=== PATIENT | male | born 1990 | race Two or more races ===

== ENCOUNTER 2020-07-05 20:43 | Emergency (ER) | payer OTHER ==
[~2020-07-05] VITALS: Ht 182.9 cm; Wt 95.3 kg
[~2020-07-05 20:43] MED LIST: FLUO10CA26 PO; RISP1TAB7 PO
[2020-07-05 22:33] LABS: BASOPHILS % (AUTO) 0.6 % (0.0-2.0); EOSINOPHILS # (AUTO) 0.1 K/uL (0.0-0.7); EOSINOPHILS % (AUTO) 1.9 % (0.0-7.0); HEMATOCRIT 41.1 % (36.7-47.1); HEMOGLOBIN 14.6 g/dL (12.5-16.3); LYMPHOCYTES % (AUTO) 51.3 % (20.5-51.5); MEAN CORPUSCULAR HEMOGLOBIN 28.6 uug (23.8-33.4); MEAN CORPUSCULAR HGB CONC 36 g/dL (32.5-36.3); MEAN CORPUSCULAR VOLUME 80.7 fL (73.0-96.2); MONOCYTES # (AUTO) 0.5 K/uL (2.0-10.0); MONOCYTES % (AUTO) 6.2 % (0.0-11.0); NEUTROPHILS # (AUTO) 3.1 K/uL (1.8-8.9); PLATELET COUNT (AUTO) 399 K/uL (152-348); RED BLOOD CELL COUNT(AUTO) 5.09 MIL/uL (4.06-5.63); WHITE BLOOD COUNT (AUTO) 7.7 K/uL (3.6-10.2)
--- NOTE | 2020-07-05 22:37 | NUR ---
LABS DRAWN/SENT, COVID SAMPLE SENT, PT ON [facility] PRECAUTIONS IN USE, FAMILY AT THE BEDSIDE, AWAITING FOR URINE, BOTTLE OF WATER GIVEN.
[2020-07-05 22:59] LABS: ALANINE AMINOTRANSFERASE 101 U/L (16-63); BILIRUBIN,DIRECT 0.2 mg/dL (0.0-0.2); CHLORIDE 98 mmol/L (98-107); LIPASE 201 U/L (73-393); POTASSIUM 3.3 mmol/L (3.5-5.1)
[2020-07-05 23:10] LABS: ALKALINE PHOSPHATASE 44 U/L (50-136); ASPARTATE AMINOTRANSFERASE 37 U/L (15-37); BILIRUBIN,TOTAL 0.6 mg/dL (0.2-1.0); CARBON DIOXIDE 26 mmol/L (21-32); CREATININE 0.7 mg/dL (0.6-1.3); GLUCOSE 98 mg/dL (74-106); TOTAL PROTEIN, SERUM 8.9 g/dL (6.4-8.2); UREA NITROGEN, BLOOD 11 mg/dL (7-18)
[2020-07-05 23:11] LABS: *BILIRUBIN,URIN NEGATIVE (NEGATIVE); *BLOOD, URINE NEGATIVE (NEGATIVE); *CLARITY,URINE CLEAR (CLEAR); *COLOR,URINE YELLOW (YELLOW); *KETONES,URINE NEGATIVE (NEGATIVE); *UROBILINOGEN,URINE 0.2 E.U./dl (NORMAL); LEUKOCYTE ESTERASE ,URINE NEGATIVE (NEGATIVE); NITRITE, URINE NEGATIVE (NEGATIVE); PH,URINE 5.5 (5.0-8.0); UGLUCOSE NEGATIVE (NEGATIVE)
[2020-07-05] MEDS ORDERED: AZITHROMYCIN 250 MG TABLET PO ONE (23:45)
[2020-07-05] MEDS ORDERED: DEXAMETHASONE 4 MG TABLET PO ONE (23:45)
[2020-07-05] MEDS ORDERED: DEXAMETHASONE 4 MG TABLET ONE (23:59)
[2020-07-05] MEDS ORDERED: AZITHROMYCIN 250 MG TABLET ONE (23:59)
[2020-07-05] MEDS ORDERED: DEXAMETHASONE 1 MG TABLET ONE (23:59)
--- NOTE | 2020-07-06 00:01 | NUR ---
MEDS ADMINISTERED, ACI/COPY OF ALL TESTS /RX X2 GIVEN. PT AMBULATED W/O DIFF TOOK ALL BELONGINGS.
[2020-07-06 00:02] VITALS: BP 150/81
== END 2020-07-06 00:03 | disposition home or self-care (01) ==
LOC: ER 20:47
DX: U07.1 COVID-19 (principal); F84.0 Autistic disorder
CPT/HCPCS: 71045; 80048; 80076; 81003; 83690; 85025; 87426; 99284; J8540 ×2; U0003; A4663; Q0144

== ENCOUNTER 2020-08-19 20:43 | Emergency (ER) | payer OTHER ==
[~2020-08-19] VITALS: Ht 182.9 cm; Wt 90.7 kg
--- NOTE | 2020-08-19 21:00 | NUR ---
Patient BIB father from home for s/p fall about 1hr [employer]. Father states patient was ambulating when suddenly started shaking and fell. Patient walked into room 3 with steady gait. No distress noted. No bruise noted. No trauma on head. Father states he hit his chest on floor.
--- NOTE | 2020-08-19 21:14 | NUR ---
MD RODRIGUEZ in room to assess patient.
--- NOTE | 2020-08-19 21:22 | NUR ---
Patient discharged to home in stable condition with father taking patient home. Written and verbal after care instructions given. Patient verbalizes understanding of instructions. Stressed follow up or return to ER for worsening s/s.
[2020-08-19 21:23] VITALS: BP 148/95
== END 2020-08-19 21:23 | disposition home or self-care (01) ==
LOC: ER 20:45
DX: S20.219A Contusion of unspecified front wall of thorax, initial encounter (principal); W18.30XA Fall on same level, unspecified, initial encounter; Y92.89 Other specified places as the place of occurrence of the external cause; F84.0 Autistic disorder; F79 Unspecified intellectual disabilities
CPT/HCPCS: 71045; A4663